=== PATIENT | female | born 2000 | race Hispanic/Latino ===

== ENCOUNTER 2024-10-13 20:34 | Emergency (ER) | payer SELFPAY ==
[2024-10-13 20:36] VITALS: BP 137/76
--- NOTE | 2024-10-13 20:38 | ED.GENMED ---
ED Provider Triage
<Tayla Chun FREIGHT ELEVATOR ERECTOR - Last Filed: 10/13/24 20:43>
-
Patient seen by provider in Triage?: Seen in Triage
24 yo female hx migraines states intermittent headache x 3 weeks becoming constant past week, low grade fever, Advil was helping initially but no longer.
Feels nauseous no vomiting.
History of Present Illness
<Tayla Chun FREIGHT ELEVATOR ERECTOR - Last Filed: 10/13/24 20:43>
General
Chief Complaint: Headache
Time Seen by Provider: 10/14/24 01:14
<JAMES Gallegos - Last Filed: 10/14/24 03:47>
General
Source: patient
Exam Limitations: none
History of Present Illness
History of Present Illness:
This is a 24 year old female that comes in with c/o headache, fever and abd pain. State that she started with a headache a couple of weeks ago. States that it started out simple and has increased and is more steady. States that it starts at the base
of the left sided of the head and then goes to the right and all over her head. States that she also just started with abd pain and nausea. States that she has had a fever just today and has been dizzy with the headache. Denies any chills, chest
pain,SOB, vomiting, diarrhea, urinary burning.
Past History
<Tayla Chun FREIGHT ELEVATOR ERECTOR - Last Filed: 10/13/24 20:43>
Past History
ED Past Medical History: Psychiatric (depression, stopped 6 mos ago Lexapro due to Insurance reasons)
ED Past Surgical History: None
Social History
Tobacco: Non-smoker
Alcohol: None
Personal: Single
Living: with family
Employment: Employed
<JAMES Gallegos - Last Filed: 10/14/24 03:47>
Past History
ED Past Medical History: Psychiatric (depression, stopped 6 mos ago Lexapro due to Insurance reasons, Anxiety) and Other (Migraines, Anemia)
Review of Systems
<Tayla Chun FREIGHT ELEVATOR ERECTOR - Last Filed: 10/13/24 20:43>
Review of Systems
Allergies reviewed?: Yes
All Other Systems: ROS reviewed and negative except as documented in HPI and ROS
Constitutional: Reports fever
Respiratory: Denies trouble breathing
Cardiac: Denies chest pain
ABD/GI: Reports nausea; Denies abdominal pain, vomiting or diarrhea
: Denies dysuria or difficulty voiding
Musculoskeletal: Reports no symptoms
Skin: Reports no symptoms
Neurological: Reports dizzy (upon standing) and headache; Denies weakness or numbness
<JAMES Gallegos - Last Filed: 10/14/24 03:47>
Review of Systems
All Other Systems: ROS reviewed and negative except as documented in HPI and ROS
Constitutional: Denies chills
EENT: Reports no symptoms
ABD/GI: Reports abdominal pain
: Denies frequency or urgency
Psychiatric: Reports no symptoms
Phy Exam
<JAMES Gallegos - Last Filed: 10/14/24 03:47>
General Physical Exam
General Presentation: well appearing and no apparent distress
General age: appears stated age
General Skin: warm and dry
General Habitus: normal
General Mental: alert
General Hydration: appears well hydrated
ENT Exam
ENT Exam: TM's normal, pharynx normal and neck supple
Eye Exam
Eye Exam: EOMI
Cardiovascular Exam
Cardiovascular Exam: regular rate/rhythm, no edema, no murmur and normal peripheral pulses
Pulmonary Exam
Pulmonary Exam: lungs clear, no respiratory distress, no rales, chest non tender, no crackles, no rhonchi, no wheezing and no cough
Gastrointestinal Exam
Gastrointestinal Exam: normal bowel sounds, soft, no organomegaly, no pulsatile mass, non distended and tender (Left sided abd tenderness with palpation)
Musculoskeletal Exam
Musculoskeletal Exam: full ROM and no edema
Skin Exam
Skin Exam: normal color, warm/dry, no rash and no petechia
Psychiatric Exam
Psychiatric Exam: normal mood/affect
Course
<Tayla Chun, FREIGHT ELEVATOR ERECTOR - Last Filed: 10/13/24 20:43>
Orders/Labs/Results
Orders:
Orders
10/14/24 01:14
Test Result ONCE
10/14/24 01:28
CBC/With Diff [Complete Blood Count/With Diff] Urgent
CMP [Comprehensive Metabolic Panel] Urgent
COVID-19 Antigen Urgent
Source: Nasal Swab
HCG, Serum Qualitative Screen Urgent
Influenza A+B Rapid Molecular Urgent
ADRIANNE Source: Nasal Swab
Specimen Description:
10/14/24 02:01
0.9% Sodium Chloride 1000 ml [Nss] 1,000 ml IV BOLUS
Acetaminophen [Tylenol] 1,000 mg PO NOW STA
Dexamethasone Sod Phosphate [Decadron] 20 mg IV NOW STA
Diphenhydramine [Benadryl] 25 mg IV NOW STA
Ketorolac [Toradol] 30 mg IV NOW STA
Prochlorperazine [Compazine] 5 mg IV NOW STA
10/14/24 02:02
CT Abd/pelvis W Iv Cont Urgent
Comment:
Reason For Exam: Left sided abd pain, Fever
CT Head W/o Iv Contrast Urgent
Comment:
Reason For Exam: headache for 3 weeks
10/14/24 02:40
Urinalysis Reflex To Culture Urgent
Date Specimen was Collected: 10/14/24
Time Specimen was Collected: 02:38
Urine Microscopic Reflex Cult Urgent
Abnormal Lab Results
10/14/24 10/14/24
01: 02:40
Hgb 10.9 L g/dL
(12.0-16.0)
Hct 33.2 L %
(37.0-47.0)
MCV 76.1 L fL
(81.0-99.0)
MCH 25.0 L pg
(27.0-31.0)
MCHC 32.8 L g/dL
(33.0-37.0)
RDW 15.1 H %
(11.5-14.5)
Neutrophils % 75.3 H %
(42.2-75.2)
Lymphocytes % 16.1 L %
(20.5-51.1)
Potassium 3.3 L mmol/L
(3.5-5.1)
Creatinine 0.5 L mg/dL
(0.6-1.0)
Glucose 110 H mg/dl
(70-99)
Ur Occult Blood Reflex 4+ A
(Negative)
10/14/24 01:28
10/14/24 01:28
Vital Signs
Initial and Last Documented VS:
Initial Vital Signs
Temp Pulse Resp BP Pulse Ox
100.6 F H 127 20 137/76 98
10/13/24 20:36 10/13/24 20:36 10/13/24 20:36 10/13/24 20:36 10/13/24 20:36
Last Documented Vital Signs
Temp Pulse Resp BP Pulse Ox
101 F H 102 18 115/69 98
10/14/24 01:25 10/14/24 00:42 10/14/24 00:42 10/14/24 00:42 10/14/24 00:42
<JAMES Gallegos - Last Filed: 10/14/24 03:47>
Orders/Labs/Results
Orders:
Orders
10/14/24 01:14
Test Result ONCE
10/14/24 01:28
CBC/With Diff [Complete Blood Count/With Diff] Urgent
CMP [Comprehensive Metabolic Panel] Urgent
COVID-19 Antigen Urgent
Source: Nasal Swab
HCG, Serum Qualitative Screen Urgent
Influenza A+B Rapid Molecular Urgent
ADRIANNE Source: Nasal Swab
Specimen Description:
10/14/24 02:01
0.9% Sodium Chloride 1000 ml [Nss] 1,000 ml IV BOLUS
Acetaminophen [Tylenol] 1,000 mg PO NOW STA
Dexamethasone Sod Phosphate [Decadron] 20 mg IV NOW STA
Diphenhydramine [Benadryl] 25 mg IV NOW STA
Ketorolac [Toradol] 30 mg IV NOW STA
Prochlorperazine [Compazine] 5 mg IV NOW STA
10/14/24 02:02
CT Abd/pelvis W Iv Cont Urgent
Comment:
Reason For Exam: Left sided abd pain, Fever
CT Head W/o Iv Contrast Urgent
Comment:
Reason For Exam: headache for 3 weeks
10/14/24 02:40
Urinalysis Reflex To Culture Urgent
Date Specimen was Collected: 10/14/24
Time Specimen was Collected: 02:38
Urine Microscopic Reflex Cult Urgent
Abnormal Lab Results
10/14/24 10/14/24
01:28 02:40
Hgb 10.9 L g/dL
(12.0-16.0)
Hct 33.2 L %
(37.0-47.0)
MCV 76.1 L fL
(81.0-99.0)
MCH 25.0 L pg
(27.0-31.0)
MCHC 32.8 L g/dL
(33.0-37.0)
RDW 15.1 H %
(11.5-14.5)
Neutrophils % 75.3 H %
(42.2-75.2)
Lymphocytes % 16.1 L %
(20.5-51.1)
Potassium 3.3 L mmol/L
(3.5-5.1)
Creatinine 0.5 L mg/dL
(0.6-1.0)
Glucose 110 H mg/dl
(70-99)
Ur Occult Blood Reflex 4+ A
(Negative)
10/14/24 01:28
10/14/24 01:28
H/H low, Hypokalemia, Glucose nonfasting. HCG negative. COVID negative. Urine negative for infection.
Vital Signs
Initial and Last Documented VS:
Initial Vital Signs
Temp Pulse Resp BP Pulse Ox
100.6 F H 127 20 137/76 98
10/13/24 20:36 10/13/24 20:36 10/13/24 20:36 10/13/24 20:36 10/13/24 20:36
Last Documented Vital Signs
Temp Pulse Resp BP Pulse Ox
101 F H 102 18 115/69 98
10/14/24 01:25 10/14/24 00:42 10/14/24 00:42 10/14/24 00:42 10/14/24 00:42
<JAMES Gallegos - Last Filed: 10/14/24 03:47>
MDM/Problems Addressed
Differential Diagnosis Includes:
Migraine, Meningitis, Diverticulitis, UTI,
MDM/Problems Addressed:
This is a 24 year old female that comes in with c/o headache, nausea abd pain. States that she started with a fever today. States that she has had headache pain for the past 3 weeks that started out slow and increased.
Will check labs, Give IV fluids and medicate for pain. Will get CT of the head and abd.
Back into see patient. Patient states that her headache is gone. Explained that her CT of the head is normal along with the Abd/pelvis CT. Explained that she may also have a viral syndrome since she has a low grade fever. Patient to use Tylenol and
Ibuprofen for headache pain and fever. Follow up with the family doctor. Increase her water intake and eat a Banana daily. Return with any concerns.
Chronic conditions affecting care:
Migraines
Acute Exacerbation and/or Progression of Chronic Illness:
Migraines
<JAMES Gallegos - Last Filed: 10/14/24 03:47>
*Radiology
Radiology exam reviewed: radiology read reviewed (CT head night hawk- No acute intracranial abnormality. No acute territorial infarct, hemorrhage, mass effect, or midline shift. CT abd/pelvis- No acute intra-abdominal pathology. No bowel
obstruction or inflammation. Appendix is normal. No hydronephrosis or nephrolithiasis. No free air or free ) and other (CT cont- fluid. Cholelithiasis without cholecystitis. Moderate bladder wall thickening in an underdistended bladder, which may be
due to under distention or cystitis)
*Pulse Oximetry
Patient hypoxic: no
*EKG
Interpreted by ED Provider?: NA
Rate: EKG- N/A
*Engine Tester Interpretation
Rate: Engine Tester- N/A
*Critical Care Note
Total Time (30-74mins, 75-104mins- exclusive of procedures): Not Applicable
ED Attending Note
<Tayla Chun NP - Last Filed: 10/13/24 20:43>
-
Portions of this chart may have been created with voice recognition software.� Occasional wrong word or��sound alike� substitutions may have occurred due to the inherent limitations of voice recognition software.
Discharge Plan
Departure
Patient Disposition: Home (Routine Discharge)
Date of Disposition: 10/14/24
Time of Disposition: 03:42
Patient with high blood pressure during this ER visit?: No
Condition: Good
Covid-19: Not Applicable
Discharge Problem:
Migraine, Fever
Instructions: Migraines (DC), Fever, Adult (DC)
Prescriptions:
No Action
prednisone 10 MG tablet
10 mg PO .TAPER Qty: 45 0RF
Rx Instructions:
Take 50mg daily x3days, 40mg daily x3days,
30mg daily x3days, 20mg daily x3days,
10mg daily x3days
valacyclovir [Valtrex] 1,000 MG tablet
1,000 mg PO TID Qty: 21 0RF
Referrals:
NONE,* [Family Provider] -
Activity Restrictions/Additional Instructions:
As discussed, your blood work shows that you are a little anemic and that your potassium is slightly low. Please eat a banana daily. You are negative for COVID and your urine is negative for infection. Your CT of the head is normal along with the CT
of the abd/pelvis. Please increase your water intake to 8-8oz glasses daily. You may use Tylenol 1000mg every 6 hours for pain and alternate with Ibuprofen 600mg every 6 hours with food for pain. Follow up with the family doctor for recheck. IF YOU
HAVE ANY OTHER CONCERNS PLEASE RETURN TO THE EMERGENCY ROOM.
Interventions
Interventions:
*Risk Screen - Suicide Last Done: 10/14/24 02:02
*General Assessment Last Done: 10/14/24 02:02
*Neglect/Abuse Screening Last Done: 10/14/24 02:02
*ED COVID-19 Vaccine History Last Done: 10/14/24 02:02
ED- Neurological Assessment Last Done: 10/14/24 02:02
Discharge Date and Time
Print Language: POLISH
--- NOTE | 2024-10-13 20:47 | EDRN ---
Seen by GLASS BLOCK INSTALLER; no orders at this time.
[2024-10-14 00:42] VITALS: BP 115/69
[2024-10-14 01:37] LABS: % Basophils 0.1 % (0-2); % Immature Granulocytes 0.4 % (0-0.5); % Lymphocytes 16.1 % (20.5-51.1); % Monocytes 8.1 % (1.7-9.3); % Neutrophils 75.3 % (42.2-75.2); Absolute Lymphocytes 1.3 10^3/uL (1.2-3.4); Absolute Monocytes 0.6 10^3/uL (0.1-0.6); Hematocrit 33.2 % (37.0-47.0); Hemoglobin 10.9 g/dL (12.0-16.0); Mean Corp Hgb Conc. 32.8 g/dL (33.0-37.0); Mean Corpuscular Volume 76.1 fL (81.0-99.0); Mean Platelet Volume 9.3 fL (7.4-10.4); Nucleated Red Blood Cells % 0 %; Platelet Count 274 10^3/uL (130-400); Red Blood Cell Count 4.36 10^6/uL (4.20-5.40); Red Cell Dist. Width 15.1 % (11.5-14.5)
[2024-10-14 01:49] LABS: HCG, Serum Qualitative Screen Negative
[2024-10-14 01:58] LABS: COVID-19 Antigen Negative (Negative)
[2024-10-14 02:01] LABS: ALT (SGPT) 18 U/L (0-35); AST (SGOT) 19 U/L (14-36); Albumin 4.3 g/dl (3.5-5.0); Alkaline Phosphatase 74 U/L (38-126); Blood Urea Nitrogen 10 mg/dl (7-17); Carbon Dioxide 24 mmol/L (22-30); Chloride 102 mmol/L (98-107); Glucose 110 mg/dl (70-99); Potassium 3.3 mmol/L (3.5-5.1); Sodium 140 mmol/L (135-145); Total Bilirubin 0.5 mg/dl (0.2-1.3); eGFR > 60.00
[2024-10-14] MEDS: BENADRYL 25 MG IV (02:10)
[2024-10-14] MEDS: COMPAZINE 5 MG IV (02:11)
[2024-10-14] MEDS: DECADRON 20 MG IV (02:13)
[2024-10-14] MEDS: TORADOL 30 MG IV (02:14)
[2024-10-14] MEDS: TYLENOL 1000 MG PO (02:15)
[2024-10-14] MEDS: NSS 1000 IV (02:16)
[2024-10-14 02:48] LABS: Urine Albumin Negative (Neg - Trace); Urine Bilirubin Negative (Negative); Urine Character Clear (Clear); Urine Color Yellow; Urine Glucose Negative (Negative); Urine Ketone Negative (Negative); Urine Leukocyte Negative (Negative); Urine Nitrite Negative (Negative); Urine Occult Blood 4+ (Negative); Urine Urobilinogen Negative (Neg - 1+)
[2024-10-14 03:53] LABS: Urine Bacteria Moderate (Negative); Urine Squamous Cell >30 /LPF (Few)
[2024-10-14 03:54] VITALS: BP 100/53
[2024-10-14 03:54] LABS: Urine Red Blood Cell 0-2 /HPF (0-2)
== END 2024-10-14 03:57 | disposition home or self-care (01) ==
LOC: EMR 20:34
PROVIDERS: Clinical Nurse Specialist Family Health; EMERGENCY PHYSICIAN Emergency Medicine
DX: G43.909 Migraine, unspecified, not intractable, without status migrainosus (principal); R50.9 Fever, unspecified; Z11.52 Encounter for screening for COVID-19
CPT/HCPCS: 99285; 96374; 96375 ×3; 96361; 70450; 74177; 80053; 81003; 81015; 84703; 85025; 87086; 87502; 87811; Q9967